=== PATIENT | male | born 1975 | race Two or more races ===

== ENCOUNTER 2019-04-08 04:30 | Emergency (ER) | payer MEDICAID, OTHER ==
[~2019-04-08] VITALS: Ht 180.3 cm; Wt 68.0 kg
[~2019-04-08 04:30] MED LIST: AMOX-422 PO; BENZ1TAB7 PO
[2019-04-08 09:07] VITALS: BP 117/87
== END 2019-04-08 10:05 | disposition home or self-care (01) ==
LOC: ER 04:30
DX: F15.10 Other stimulant abuse, uncomplicated (principal); R53.83 Other fatigue; J45.909 Unspecified asthma, uncomplicated; G89.29 Other chronic pain; Z88.8 Allergy status to other drugs, medicaments and biological substances; Z79.2 Long term (current) use of antibiotics; Z79.899 Other long term (current) drug therapy
CPT/HCPCS: 99283

== ENCOUNTER 2020-01-03 02:26 | Emergency (ER) | payer MEDICAID ==
[~2020-01-03] VITALS: Ht 177.8 cm; Wt 59.1 kg
--- NOTE | 2020-01-03 02:48 | NUR ---
officer just got stuck by a needle that was in the patients' sock
[2020-01-03 04:11] LABS: HIV ANTIBODY 1&2 RAPID NON-REACTIVE (Neg)
[2020-01-03 05:01] VITALS: BP 112/84
[2020-01-03] MEDS ORDERED: LIDOcaine 1% W/epiNEPHrine 1:200,000 10ml vial IJ ONE (05:20)
[2020-01-03] MEDS ORDERED: LIDOcaine 1% w/epiNEPHrine 1:200,000 30ml vial IJ ONE (05:20)
[2020-01-03] MEDS ORDERED: TETanus/Pertussis (Acell)/Diphther VAC/PF (Tdap-Adult) 0.5ml syringe IMVAC ONE (05:55)
--- NOTE | 2020-01-03 06:13 | NUR ---
PTS WOUND TO KNEED AND SHINS (ABRASIONS) CLEANED WITH CHLORAHEXADINE SCRUB AND BATH WIPES.
[2020-01-04 10:56] LABS: HBSAG SCREEN Negative (Negative); HEPATITIS C ANTIBODY <0.1 s/co ratio (0.0-0.9)
--- NOTE | 2020-01-05 07:59 | NUR ---
Spoke with Rahcel RN @ [facility] ([phone]) to notify of Hep B results; pt already released. Attempted to contact pt via listed contact information which went to with greeting for a "Kimani Jerome." Left asking if this individual knows pt, to have them call [facility] ED Charge Nurse. [place] [facility] [place] [employer] officers involved with this pt should also be drawn d/t pt's actively bleeding laceration.
== END 2020-01-03 06:17 ==
LOC: ER 02:26
DX: S51.811A Laceration without foreign body of right forearm, initial encounter (principal); S80.212A Abrasion, left knee, initial encounter; S80.211A Abrasion, right knee, initial encounter; F11.10 Opioid abuse, uncomplicated; J45.909 Unspecified asthma, uncomplicated; G89.29 Other chronic pain; F15.90 Other stimulant use, unspecified, uncomplicated; F17.200 Nicotine dependence, unspecified, uncomplicated; Z59.0 Homelessness; Z88.8 Allergy status to other drugs, medicaments and biological substances; Z79.899 Other long term (current) drug therapy; Y04.8XXA Assault by other bodily force, initial encounter; Y93.89 Activity, other specified; Y92.89 Other specified places as the place of occurrence of the external cause; Y99.8 Other external cause status
CPT/HCPCS: 12001; 36415; 73090; 86703; 86706; 86803; 87340; 90471; 90715; 99284

== ENCOUNTER 2021-09-11 08:21 | Emergency (ER) | payer SELFPAY ==
[~2021-09-11] VITALS: Ht 180.3 cm; Wt 59.0 kg
[2021-09-11 10:58] LABS: CLARITY,URINE CLEAR (Clear); COLOR,URINE YELLOW (Yellow); GLUCOSE, URINE NEGATIVE (Neg); KETONES,URINE NEGATIVE (Neg); LEUKOCYTE ESTERASE ,URINE NEGATIVE (Neg); NITRITES, URINE NEGATIVE (Neg); OCCULT BLOOD,URINE NEGATIVE (Neg); PH,URINE 5.5 (4.8-8.0); PROTEIN,URINE NEGATIVE (Neg); UROBILINOGEN,URINE 0.2 E.U/dL (0.2-1.0)
[2021-09-11 10:59] LABS: UA COLLECTION TYPE CLN CATCH MIDSTREAM
[2021-09-11] MEDS ORDERED: azithromycin 250mg tablet PO ONE (11:30)
[2021-09-11] MEDS ORDERED: CefTRIAXone 1000mg IM Kit (w/lidocaine diluent) IM ONE (11:30)
[2021-09-11 12:17] VITALS: BP 110/69
== END 2021-09-11 12:05 | disposition home or self-care (01) ==
LOC: ER 08:21
DX: N45.1 Epididymitis (principal); J45.909 Unspecified asthma, uncomplicated; G89.29 Other chronic pain; F15.90 Other stimulant use, unspecified, uncomplicated; F11.90 Opioid use, unspecified, uncomplicated; Z59.00 Homelessness unspecified; Z88.8 Allergy status to other drugs, medicaments and biological substances; Z79.899 Other long term (current) drug therapy; Z98.890 Other specified postprocedural states
CPT/HCPCS: 36415; 76870; 81003; 87491; 87591; 93976; 96372; 99284; J0696

== ENCOUNTER 2021-11-09 22:35 | Emergency (ER) | payer MEDICAID ==
[~2021-11-09] VITALS: Ht 175.3 cm; Wt 58.1 kg
[2021-11-09 23:31] LABS: EOSINOPHILS # (AUTO) 0.3 X10'3 (0-0.9)
[2021-11-09 23:33] LABS: HEMOGLOBIN 12.9 g/dl (14.0-17.9); RED CELL DISTRIBUTION WIDTH 13.2 % (11.5-14.5)
[2021-11-09] MEDS ORDERED: LIDOcaine 1% W/epiNEPHrine 1:100,000 20ml vial SQ ONE (23:35)
[2021-11-09 23:36] LABS: BASOPHILS % (AUTO) 0.4 % (0-1); EOSINOPHILS % (AUTO) 3.3 % (0-6); HEMATOCRIT 38.2 % (42.0-52.0); LYMPHOCYTES % (AUTO) 19.5 % (21-51); MEAN CORPUSCULAR HEMOGLOBIN 29.7 PG (27.0-31.0); MEAN CORPUSCULAR HGB CONC 33.8 g/dL (33.0-36.5); MEAN CORPUSCULAR VOLUME 87.9 FL (78-98); MEAN PLATELET VOLUME 8.8 FL (7.4-10.4); MONOCYTES # (AUTO) 0.8 X10'3 (0-0.9); MONOCYTES % (AUTO) 7.6 % (2-12); NEUTROPHILS % (AUTO) 69.2 % (42-75); PLATELET COUNT 235 X10'3 (140-440); RED BLOOD COUNT 4.34 X10'6 (4.70-6.10); WHITE BLOOD COUNT 10.1 X10'3 (4.5-11.0)
[2021-11-09 23:39] LABS: ALANINE AMINOTRANSFERASE 23 U/L (12-78); ALBUMIN 3.6 G/DL (3.4-5.0); ALBUMIN/GLOBULIN RATIO 1.3 (1.1-1.5); ALKALINE PHOSPHATASE 98 IU/L (46-116); ANION GAP 7 (8-16); ASPARTATE AMINO TRANSFERASE 20 U/L (10-37); BILIRUBIN,TOTAL 0.3 MG/DL (0.1-1.0); BLOOD UREA NITROGEN 13 MG/DL (7-18); BUN/CREATININE RATIO 13.3 (5.4-32.0); CALCIUM 8.3 MG/DL (8.5-10.1); CHLORIDE 107 MMOL/L (99-107); CREATININE 0.98 MG/DL (0.60-1.10); GLUCOSE 156 MG/DL (70-104); POTASSIUM 3.4 MMOL/L (3.5-5.1); SODIUM 143 MMOL/L (135-145); TOTAL CARBON DIOXIDE 29.5 MMOL/L (24-32); TOTAL PROTEIN 6.3 G/DL (6.4-8.2); eGFR 82 ML/MIN
[2021-11-09] MEDS ORDERED: LIDOCAINE 2% w/EPI 1:100:000 30mL injection MDV**cath lab 1 only SQ ONE (23:55)
[2021-11-10] MEDS ORDERED: potassium Cl 20 mEq SR tablet PO ONE (00:20)
[2021-11-10] MEDS ORDERED: magnesium 2GM in 50ml NS 50 ML IV ONE (00:20)
[2021-11-10] MEDS ORDERED: CEPH-585 PO (05:45)
[2021-11-10] MEDS ORDERED: HYDR-3965 PO (05:45)
--- NOTE | 2021-11-10 05:49 | NUR ---
PTS HAS BEEN CLEANED UP AND A DRESSING IN PLACE OVER HIS LEON DRAIN. PT GIVEN CLEAN CLOTHES.
[2021-11-10 05:50] VITALS: BP 126/89
== END 2021-11-10 07:31 | disposition home or self-care (01) ==
LOC: ER 22:37
DX: S31.821A Laceration without foreign body of left buttock, initial encounter (principal); J45.909 Unspecified asthma, uncomplicated; F15.20 Other stimulant dependence, uncomplicated; F14.90 Cocaine use, unspecified, uncomplicated; Z88.8 Allergy status to other drugs, medicaments and biological substances; Z59.00 Homelessness unspecified; W25.XXXA Contact with sharp glass, initial encounter; Y93.89 Activity, other specified; Y92.89 Other specified places as the place of occurrence of the external cause; Y99.8 Other external cause status
CPT/HCPCS: 12001; 36415; 72190; 72192; 80053; 85025; 96365; 96366; 96367; 99285; J0690; J3475; J7060; A6258; A6449

== ENCOUNTER 2021-11-30 23:51 | Emergency (ER) | payer MEDICAID ==
[~2021-11-30] VITALS: Ht 180.3 cm; Wt 59.1 kg
[~2021-11-30 23:51] MED LIST changes: -AMOX-422 PO; -BENZ1TAB7 PO; +CEPH-585 PO; +HYDR-3965 PO
[2021-12-01 00:32] VITALS: BP 127/90
[2021-12-01] MEDS ORDERED: ibuprofen tablet 400 MG TABLET PO ONE (01:25)
== END 2021-12-01 01:32 | disposition home or self-care (01) ==
LOC: ER 23:51
DX: S30.91XD Unspecified superficial injury of lower back and pelvis, subsequent encounter (principal); J45.909 Unspecified asthma, uncomplicated; G89.29 Other chronic pain; F15.10 Other stimulant abuse, uncomplicated; F11.10 Opioid abuse, uncomplicated; Z59.00 Homelessness unspecified; Z88.8 Allergy status to other drugs, medicaments and biological substances; Z79.899 Other long term (current) drug therapy; Z79.2 Long term (current) use of antibiotics; X58.XXXD Exposure to other specified factors, subsequent encounter
CPT/HCPCS: 99282; A6258; A6449

== ENCOUNTER 2022-03-27 09:21 | Emergency (ER) | payer MEDICAID ==
[~2022-03-27] VITALS: Ht 180.3 cm; Wt 65.0 kg
[~2022-03-27 09:21] MED LIST changes: -HYDR-3965 PO
[2022-03-27 09:50] VITALS: BP 148/74
[2022-03-27] MEDS ORDERED: PENICILLIN G BENZATHINE 2,400,000 UNIT/4 ML SYRINGE IM ONE (11:20)
== END 2022-03-27 12:16 | disposition home or self-care (01) ==
LOC: ER 09:21
DX: A64 Unspecified sexually transmitted disease (principal); F17.200 Nicotine dependence, unspecified, uncomplicated; J45.909 Unspecified asthma, uncomplicated; G89.29 Other chronic pain; Z79.899 Other long term (current) drug therapy
CPT/HCPCS: 36415; 86592; 87491; 87591; 96372; 99283; J0561

== ENCOUNTER 2022-08-01 21:31 | Emergency (ER) | payer MEDICAID ==
[~2022-08-01] VITALS: Ht 180.3 cm; Wt 61.4 kg
[2022-08-01 21:38] VITALS: BP 112/69
[2022-08-01] MEDS ORDERED: AMOX-117 PO (22:43)
[2022-08-01] MEDS ORDERED: amox tr/potassium clavulanate 875/125mg TAB PO ONE (22:45)
[2022-08-01] MEDS ORDERED: ibuprofen tablet 400 MG TABLET PO ONE (22:45)
== END 2022-08-01 23:30 | disposition home or self-care (01) ==
LOC: ER 21:32
DX: K04.7 Periapical abscess without sinus (principal); G89.29 Other chronic pain; J45.909 Unspecified asthma, uncomplicated; F15.10 Other stimulant abuse, uncomplicated; Z79.899 Other long term (current) drug therapy
CPT/HCPCS: 99283